=== PATIENT | female | born 2000 | race Caucasian/White ===

== ENCOUNTER 2023-05-27 03:31 | Emergency (ER) | payer OTHER, SELFPAY ==
[2023-05-27 03:40] VITALS: BP 113/74; PULSE 77; RESP 18; TEMP 36.6; O2SAT 96; BMI 21.5
[2023-05-27 03:55] LABS: Appearance Urine Clear (Clear); Bilirubin Urine Negative (Negative); Blood Urine Negative (Negative); Color Urine Yellow (Yellow); Glucose Urine Negative (Negative); Ketones Urine Trace (Negative); Leukocyte Esterase Urine Negative (Negative); Nitrite Urine Negative (Negative); Protein Urine Negative (Negative); Urobilinogen Urine 0.2 (0.2-1.0); pH Urine 6.5 (5.0-8.5)
--- NOTE | 2023-05-27 03:55 | CRLHL7_ITS ---
For Patients: As a result of the Century Cures Act, medical imaging exams and procedure reports are released immediately into your electronic medical record. You may view this report before your referring provider. If you have questions, please contact your health care provider. INDICATION: Right lower quadrant/pelvic pain COMPARISON: None TECHNIQUE: CT examination of the abdomen and pelvis was performed without intravenous contrast. Thin section axial images were obtained from the lung bases through the pubic symphysis. Oral contrast was not administered. Please note that all CT scans at this facility use dose modulation, iterative reconstruction, and/or weight-based dosing when appropriate to reduce radiation dose to as low as reasonably achievable. FINDINGS: LUNG BASES: The lung bases as visualized appear normal.The heart size is normal at the lung bases. LIVER/BILIARY SYSTEM:The liver is normal in size and configuration given the lack of intravenous contrast. There is no visible focal mass and there is no intra- or extra hepatic biliary ductal dilatation.The gall bladder appears normal. ADRENALS: Normal non-contrast appearance KIDNEYS, URETERS and BLADDER:The kidneys appear normal given lack of intravenous contrast. No visible mass, calculus or hydronephrosis. The ureters and bladder as visualized appear normal. SPLEEN:Normal non-contrast appearance. PANCREAS: Normal non-contrast appearance. RETROPERITONEUM and MESENTERY: There is no mass, adenopathy or aortic aneurysm. GASTROINTESTINAL SYSTEM: There is no evidence of diverticulitis, colitis, mechanical obstruction, or appendicitis. The small bowel as visualized appears normal.The appendix is not directly visualized but there are no secondary findings of appendicitis PELVIS: Uterus is deviated to the right. There is a complex left adnexal mass which is probably tubal and/or ovarian in origin. This measures up to about 6.5 centimeters. Sonography with Doppler is recommended for further evaluation and characterization.. OSSEOUS STRUCTURES and ABDOMINAL WALL: There is an age-appropriate appearance of the osseous structures.No significant abdominal wall defect. OTHER: There is mild ascites primarily pelvic and perihepatic. IMPRESSION: 1. Complex left adnexal mass which is probably tubal and/or ovarian in origin. This measures up to about 6.5 centimeters in greatest dimension. Sonography with Doppler is advised for further evaluation and characterization. 2. Mild ascites primarily pelvic and perihepatic. 3. The appendix is not directly visualized but there are no secondary findings of appendicitis. Please note that all CT scans at this facility use dose modulation, iterative reconstruction, and/or weight-based dosing when appropriate to reduce radiation dose to as low as reasonably achievable. Dictated by Aron Domínguez MD @ 05/27/2023 4:36:58 AM (Electronically Signed)
--- NOTE | 2023-05-27 03:57 | ED_ITS ---
HPI - General Adult General Date Seen: 05/27/23 Chief complaint: Abdominal Pain Stated complaint: Lower right abdominal pain Time Seen by Provider: 05/27/23 03:38 Source: patient Mode of arrival: ambulatory Limitations: no limitations History of Present Illness HPI narrative: Patient is a 22-year-old female who was in her usual state of health yesterday. She her had intercourse around 6:00 p.m. and within about 10 minutes she started having some right lower quadrant abdominal pain. She felt some sweats and chills but did not have a fever. No dysuria, urgency, frequency. No vaginal discharge out of the ordinary. She expects her period to begin in a few days. Tylenol and ibuprofen have not taken the pain away well enough. She was able to sleep for a few hours but pain woke her up. No nausea or vomiting. No diarrhea. Related Data Home Medications Medication Instructions Recorded Confirmed spironolactone 100 mg tablet 100 mg PO DAILY 05/27/23 05/27/23 Allergies Allergy/AdvReac Type Severity Reaction Status Date / Time No Known Drug Allergies Allergy Verified 05/27/23 03:42 Review of Systems Narrative: Review of systems is outlined above otherwise noted to be negative. PFSH PFS Social History Smoking Status: Never smoker Do you use any of these nicotine containing products: None How often do you have a drink containing alcohol: never AUDIT-C Alcohol total score: 0 Non-prescribed substance use: denies use Exam Narrative: Exam Narrative: Vitals noted. HEENT: Conjunctiva clear. Neck is supple without adenopathy, thyromegaly, carotid bruit. Lungs: Clear to auscultation in all [place]. No wheezes, rales, rhonchi. Heart: Regular rate and rhythm without murmur. Abdomen: Soft with right lower quadrant tenderness. No guarding, rigidity, rebound. Bowel sounds are normal. No palpable masses. Extremities: No cyanosis or edema. Good distal pulses. Skin: No abnormalities noted of the exposed skin. Neurologic: Awake, alert, fully oriented. Neurologic exam is nonfocal. Const: Vital Signs, click to edit/add: Vital Signs - 24 hr 05/27/23 03:40 05/27/23 06:45 Temperature 97.9 F Pulse Rate [Pulse Oximeter] 77 64 Respiratory Rate 18 16 Blood Pressure [Ri ght Upper Arm] 113/74 116/74 Pulse Oximetry 96 96 Oxygen Delivery Me thod Room Air Room Air Course Course ED Course: Patient was seen and examined. CBC, BMP, UA are ordered. CT of the abdomen and pelvis without contrast is ordered. Reevaluation(s) Reevaluation #1: UA and UPT are negative. CBC and basic metabolic panel are normal. CT does not show signs of appendicitis. There is a complex cystic mass on the left side of the pelvis originating either from the tube or the ovary. The radiologist has suggested a pelvic ultrasound for further evaluation. I re-examine the patient and she has no pain on her left side. She is given ibuprofen 600 mg orally and Percocet one tablet. Pelvic ultrasound is ordered. Reevaluation #2: Pelvic ultrasound confirms that this is a hemorrhagic left ovarian cyst. No worrisome findings. Vital Signs Vital signs: Initial Vital Signs Temperature 97.9 F 05/27/23 03:40 Temperature Source Temporal Artery Scan 05/27/23 03:40 Pulse Rate 77 05/27/23 03:40 Respiratory Rate 18 05/27/23 03:40 Blood Pressure 113/74 05/27/23 03:40 Blood Pressure Mean 87 05/27/23 03:40 Blood Pressure Position Sitting 05/27/23 03:40 Pulse Oximetry 96 05/27/23 03:40 Oxygen Delivery Method Room Air 05/27/23 03:40 Vital Signs Temperature 97.9 F 05/27/23 03:40 Pulse Rate 77 05/27/23 03:40 Respiratory Rate 18 05/27/23 03:40 Blood Pressure 113/74 05/27/23 03:40 Pulse Oximetry 96 05/27/23 03:40 Oxygen Delivery Method Room Air 05/27/23 03:40 Temperature 97.9 F 05/27/23 03:40 Pulse Rate 64 05/27/23 06:45 Respiratory Rate 16 05/27/23 06:45 Blood Pressure 116/74 05/27/23 06:45 Pulse Oximetry 96 05/27/23 06:45 Oxygen Delivery Method Room Air 05/27/23 06:45 Medications Administered Medications: Discontinued Medications Generic Name Dose Route Start Last Admin Trade Name Freq PRN Reason Stop Dose Admin Ibuprofen 600 mg 05/27/23 04:47 05/27/23 04:52 Ibuprofen 200 Mg Tablet PO 05/27/23 04:48 600 mg ONCE ONE Administration Oxycodone/Acetaminophen 1 tab 05/27/23 04:47 05/27/23 05:26 Oxycodone/Apap 5-325 Tablet PO 05/27/23 04:48 1 tab ONCE ONE Administration Medical Decision Making Lab Data Labs: Lab Results 05/27/23 05/27/23 05/27/23 Range/Units 03:42 03:55 04:30 WBC 9.34 (4.50-11.00) K/uL RBC 3.91 L (4.00-5.20) m/uL Hgb 12.5 (12.0-16.0) gm/dL Hct 36.4 (33.0-51.0) % MCV 93 (80-100) fL MCH 32 (26-34) pg MCHC 34 (32-36) gm/dL RDW Coeff of Alfred 11.7 (11.5-15.5) % Plt Count 212 (140-440) K/uL Neut % (Auto) 78.8 H (42.0-72.0) % Lymph % (Auto) 15.1 L (20-44) % Trigg % (Auto) 5.6 (0.0-11.0) % Eos % (Auto) 0.2 (0.0-7.0) % Baso % (Auto) 0.2 (0.0-3.0) % Neut # (Auto) 7.40 H (1.7-7.0) K/uL Lymph # (Auto) 1.40 (0.90-2.90) K/uL Trigg # (Auto) 0.50 (0.00-0.90) K/UL Eos # (Auto) 0.02 (0.00-0.50) K/uL Baso # (Auto) 0.02 (0.00-0.30) K/uL Abs Immat Gran (auto) 0.01 (0.00-0.30) K/uL Imm/Tot Granulo (auto) 0.1 % Sodium 137 (135-149) mmol/L Potassium 4.2 (3.6-5.1) mmol/L Chloride 105 (96-114) mmol/L Carbon Dioxide 26 (20-32) mmol/L Anion Gap 6 L (7-15) mEq/L BUN 12 (5-24) mg/dL Creatinine 0.6 (0.5-1.5) mg/dL Estimated Creat Clear 124.85 Estimated GFR 128 ml/min Glucose 94 (60-115) mg/dL Calcium 9.2 (8.4-10.6) mg/dL Urine Color Yellow (Yellow) Urine Appearance Clear (Clear) Urine pH 6.5 (5.0-8.5) Ur Specific [place] 1.020 (1.000-1.030) Urine Protein Negative (Negative) Urine Glucose (UA) Negative (Negative) Urine Ketones Trace A (Negative) Urine Blood Negative (Negative) Urine Nitrite Negative (Negative) Urine Bilirubin Negative (Negative) Urine Urobilinogen 0.2 (0.2-1.0) Ur Leukocyte Esterase Negative (Negative) Urine HCG, Qual Negative (Negative) Discharge Plan Discharge Clinical Impression: Hemorrhagic cyst of left ovary Patient Disposition: Home, Self-Care Condition: Improved Additional Instructions: Ibuprofen 600 mg 3 times daily as needed for pain, Tylenol 1000 mg 3 times daily as needed for pain. 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 Prescriptions: No Action spironolactone 100 mg tablet 100 mg PO DAILY Follow Up/Referrals: Provider,Not a Local [Primary Care Provider] - Stand Alone Forms: [employer] Info Instructions
[2023-05-27 04:00] LABS: Ur HCG Qualitative* Negative (Negative)
[2023-05-27 04:40] LABS: Basophils Absolute Auto 0.02 K/uL (0.00-0.30); Basophils Percent Auto 0.2 % (0.0-3.0); Eosinophils Absolute Auto 0.02 K/uL (0.00-0.50); Eosinophils Percent Auto 0.2 % (0.0-7.0); Hematocrit 36.4 % (33.0-51.0); Hemoglobin* 12.5 gm/dL (12.0-16.0); Immature Granulocytes Abs Auto 0.01 K/uL (0.00-0.30); Immature Granulocytes Pct Auto 0.1 %; Lymphocytes Percent Auto 15.1 % (20-44); Mean Corpuscular HGB Conc 34 gm/dL (32-36); Mean Corpuscular Hemoglobin 32 pg (26-34); Mean Corpuscular Volume 93 fL (80-100); Monocytes Percent Auto 5.6 % (0.0-11.0); Neutrophils Percent Auto 78.8 % (42.0-72.0); Platelet Count* 212 K/uL (140-440); RDW Coefficient of Variation % 11.7 % (11.5-15.5); Red Blood Count 3.91 m/uL (4.00-5.20); White Blood Count* 9.34 K/uL (4.50-11.00)
--- NOTE | 2023-05-27 04:48 | CRLHL7_ITS ---
For Patients: As a result of the Century Cures Act, medical imaging exams and procedure reports are released immediately into your electronic medical record. You may view this report before your referring provider. If you have questions, please contact your health care provider. Indication: Abnormal CT. Pain. Technique: Sonography of the pelvis was performed transabdominally and transvaginally. Grayscale and Doppler imaging was provided Comparison: The CT of earlier the same day Findings: The uterus is deviated to the right. It is normal in size and appearance measuring 7.7 x 3.7 x 4.2 centimeters. There is no myometrial mass. The endometrium measures 7 millimeters which is normal. The right ovary was not visualized. There was no visible right adnexal mass. There is moderate free fluid in the cul de sac above that generally seen physiologically. This was also present on the CT and there was perihepatic ascites on the CT Enlarged left adnexal structure probably ovarian without could be tubal an ovarian origin. This measures 6.0 x 4.5 x 4.8 centimeters. This shows arterial and venous flow. This has some features suggesting a hemorrhagic component but there are some complex solid components. This is too complex to completely assume that it is a hemorrhagic cyst. There are possibilities besides hemorrhagic cysts such as endometrioma. Some forms of tubal adnexal inflammatory disease can create this appearance. Neoplasm is felt unlikely. Gynecologic consultation is recommended at a clinically appropriate time for further evaluation I discussed this case with Dr. Mcclure at 7 a.m. on May 27, 2023 Impression: 1. The uterus appears normal. 2. The right ovary was not visualized. 3. Complex left adnexal mass probably ovarian in origin though this could be tubal and ovarian. This measures 6.0 x 4.5 x 4.8 centimeters. This clearly has some hemorrhagic components by imaging criteria however it is too complex to assume is a simple hemorrhagic cyst. Other possibilities include an endometrioma and some forms of tubal adnexal inflammatory disease. There is no evidence that this is torsed or undergoing torsion during the time course of this exam 4. Fluid in the cul de sac above that generally seen physiologically. There was also perihepatic ascites on the CT 5. Gynecologic consultation is recommended at a clinically appropriate time for further evaluation 6. From an imaging perspective, MRI may provide further tissue characterization Dictated by Aron Domínguez MD @ 05/27/2023 7:09:20 AM (Electronically Signed)
[2023-05-27] MEDS: IBUPROFEN 200 MG TABLET 600 MG PO (04:52)
[2023-05-27 05:01] LABS: Chloride* 105 mmol/L (96-114); Potassium* 4.2 mmol/L (3.6-5.1); Sodium* 137 mmol/L (135-149)
[2023-05-27 05:04] LABS: Anion Gap 6 mEq/L (7-15); Blood Urea Nitrogen* 12 mg/dL (5-24); Carbon Dioxide* 26 mmol/L (20-32); Creatinine* 0.6 mg/dL (0.5-1.5); Est. Creatinine Clearance* 124.85; Estimated Glomerular Filt Rate 128 ml/min; Glucose* 94 mg/dL (60-115)
[2023-05-27 05:05] LABS: Calcium* 9.2 mg/dL (8.4-10.6)
[2023-05-27 05:06] LABS: Slide Review Reflex No
[2023-05-27] MEDS: OxyCODONE/APAP 5-325 TABLET 1 TAB PO (05:26)
[2023-05-27 06:45] VITALS: BP 116/74; PULSE 64; RESP 16; O2SAT 96
== END 2023-05-27 07:32 | disposition home or self-care (01) ==
PROVIDERS: Emergency Provider Family Medicine
DX: N83.291 Other ovarian cyst, right side (principal)
CPT/HCPCS: 36415; 74176; 76830; 76856; 80048; 81003; 81025; 85025; 93976; 99282; 99284; A9270